=== PATIENT | male | born 1945 | race Asian ===

== ENCOUNTER 2022-12-01 15:35 | Outpatient (CLI) | payer OTHER ==
[2022-12-01 18:16] LABS: PLATELET COUNT 318 K/uL (142-355)
[2022-12-01 18:29] LABS: POTASSIUM 4.5 mmol/L (3.6-5.2)
== END 2022-12-01 18:56 | disposition home or self-care (01) ==
LOC: LABW 15:35
PROVIDERS: ATTEND Student in an Organized Health Care Education/Training Program
DX: Z01.89 Encounter for other specified special examinations (principal); N17.9 Acute kidney failure, unspecified; N18.32 Chronic kidney disease, stage 3b; D63.1 Anemia in chronic kidney disease; E11.9 Type 2 diabetes mellitus without complications; E87.5 Hyperkalemia; E79.0 Hyperuricemia without signs of inflammatory arthritis and tophaceous disease; R80.8 Other proteinuria; N25.81 Secondary hyperparathyroidism of renal origin; I12.9 Hypertensive chronic kidney disease with stage 1 through stage 4 chronic kidney disease, or unspecified chronic kidney disease
CPT/HCPCS: 36415; 80053; 80074; 81000; 82306; 82550; 82570; 83036; 83516; 83735; 83970; 84100; 84156; 84165; 84550; 85027; 86037; 86160; 86592; 86701; 86702; 87086; 87088; 87389